=== PATIENT | female | born 1975 | race Caucasian/White ===

== ENCOUNTER → 2019-01-14 | Outpatient (CLI) | payer BC ==
--- NOTE | 2019-01-14 08:04 | MM ---
Reason for exam: screening (asymptomatic). Baseline mammogram. History: Patient had first child at age 36. Taking hormonal contraceptives beginning at age 18. Physical Findings: Nurse did not find any significant physical abnormalities on exam. MG 3D Screening Mammo W/Cad Bilateral CC and MLO view(s) were taken. The breast tissue is heterogeneously dense. This may lower the sensitivity of mammography. There is no discrete abnormality. These results were verbally communicated with the patient and result sheet given to the patient on 01/14/19. ASSESSMENT: Negative, BI-RAD 1 RECOMMENDATION: Routine screening mammogram of both breasts in 1 year.
== END | disposition home or self-care (01) ==
LOC: RADMAMWWP 07:04
PROVIDERS: ATTEND Obstetrics & Gynecology
DX: Z12.31 Encounter for screening mammogram for malignant neoplasm of breast (principal)
CPT/HCPCS: 77063; 77067

== ENCOUNTER → 2021-09-11 | Outpatient (CLI) | payer BC ==
[2021-09-11 11:19] LABS: HCT 39.2 % (37.2-46.3); MCH 30.4 pg (27.0-32.0); MCHC 33.2 g/dL (32.0-37.0); MCV 91.6 fL (80.0-97.0); Mean Platelet Volume 8.5 fL (9.5-12.2); NRBC Per 100 WBC 0 /100 WBCS (0.0-0.0); Platelet Count 270 X 10*3/uL (140-440); RBC 4.28 X 10*6/uL (4.10-5.20); RDW 12.8 % (11.5-14.5); WBC 5.43 X 10*3/uL (4.50-10.00)
[2021-09-11 11:39] LABS: ALT 15 U/L (8-44); AST 19 U/L (13-35); African American GFR (CKD) 97.7 (60.0-200.0); Albumin 4.8 g/dL (3.8-4.9); Albumin/Globulin Ratio 2.12 (1.60-3.17); Alkaline Phosphatase 89 U/L (41-126); BUN/Creat Ratio 16.75 Ratio (12.00-20.00); Blood Urea Nitrogen 14.1 mg/dL (9.0-27.0); Calcium 9.3 mg/dL (8.7-10.3); Carbon Dioxide 26.1 mmol/L (20.0-27.5); Chloride 103 mmol/L (96-109); Chol/HDL Ratio 3.54 Ratio; Globulin 2.2 g/dL (1.6-3.3); Glucose 107 mg/dL (70-110); Non-African American GFR(CKD) 84.3 (60.0-200.0); Potassium 4.3 mmol/L (3.5-5.5); Sodium 140 mmol/L (135-145); VLDL Calculation 17.84 mg/dL (5.00-40.00)
--- NOTE | 2021-09-12 09:29 | CT ---
EXAMINATION TYPE: CT brain wo con DATE OF EXAM: 09/11/2021 COMPARISON: None INDICATION: Headaches DLP: 1085.9 mGycm, Automated exposure control for dose reduction was used. CONTRAST: None CT of the brain is performed utilizing 3 mm thick sections through the posterior fossa and 3 mm thick sections through the remaining calvarium. Study is performed within 24 hours of arrival to the [facility]. No abnormal hyperdensity is present to suggest an acute intracranial hemorrhage. No mass lesion is evident. No acute infarcts are evident. Ventricles and sulci are appropriate for the patient age. Paranasal sinuses and mastoid air cells within the [id number] are clear. IMPRESSIONS: 1. No acute intracranial process. Follow-up MRI can be performed as clinically indicated
== END | disposition home or self-care (01) ==
LOC: RADCTMAIN 07:40
PROVIDERS: ATTEND Family Medicine
DX: R51.9 Headache, unspecified (principal)
CPT/HCPCS: 70450; 80053; 80061; 84439; 84443; 84479; 85027

== ENCOUNTER → 2022-03-04 | Outpatient (CLI) | payer BC ==
--- NOTE | 2022-03-07 08:38 | MM ---
Reason for Exam: Screening (asymptomatic). Last mammogram was performed 3 year(s) and 1 month(s) ago. Patient History: Menarche at age 14. First Full-Term at age 36. Late child-bearing (after 32). Currently using Hormonal Contraceptives, starting at age 18. Last menstrual period: 02/13/2022 Risk Values: [place] 5 year model risk: 1.1%. NCI Lifetime model risk: 13.1%. Prior Study Comparison: 01/14/2019 Bilateral Screening Mammogram, [facility]. Tissue Density: The breast tissue is heterogeneously dense. This may lower the sensitivity of mammography. Findings: Analyzed By CAD. There is no suspicious new group of microcalcifications or new suspicious mass in either breast. Overall Assessment: Negative, BI-RAD 1 Management: Screening Mammogram of both breasts in 1 year. A clinical breast exam by your physician is recommended on an annual basis and results should be correlated with mammographic findings. Electronically signed and approved by: Amish Prado M.D.
== END | disposition home or self-care (01) ==
LOC: RADMAMWWP 08:17
PROVIDERS: ATTEND Obstetrics & Gynecology
DX: Z12.31 Encounter for screening mammogram for malignant neoplasm of breast (principal)
CPT/HCPCS: 77063; 77067